=== PATIENT | male | born 1960 | race Caucasian/White ===

== ENCOUNTER 2018-08-03 23:34 | Emergency (ER) | payer MEDICARE ==
[~2018-08-03] VITALS: Ht 177.8 cm; Wt 77.1 kg
[~2018-08-03 23:34] MED LIST: COREG6.25 MG PO; LISINOPRIL10 MG PO
[2018-08-04] MEDS ORDERED: METHYLPREDNISOLONE SOD SUCC 125 MG/2ML VIAL IV ONE
[2018-08-04] MEDS ORDERED: ALBUTEROL/IPRATROPIUM 3 ML NEB NEB ONE ×3
[2018-08-04] MEDS ORDERED: VENTOLIN HFA18 GM PO (00:15)
[2018-08-04] MEDS ORDERED: PREDNISONE20 MG PO (00:15)
[2018-08-04] MEDS ORDERED: TESSALON PERLE100 MG PO (00:15)
[2018-08-04] MEDS ORDERED: AZITHROMYCIN250 MG PO (00:15)
--- NOTE | 2018-08-04 00:37 | Diagnostic Imaging Report ---
EXAMINATION: PA and lateral views of the chest. COMPARISON: None CLINICAL HISTORY: Cough, congestion, shortness of breath DISCUSSION: Lines/tubes: Right upper chest multilead cardiac device Lungs: Lungs are hyperinflated, with straightening of the hemidiaphragms and marked increased lucency of the upper lobes, right greater than left, associated with COPD changes. Ill-defined opacity in the left mid lung, likely in the left upper lobe. Linear opacity predominantly noted in the lateral view, likely in the right upper lobe adjacent to a large bulla Pleura: There is no pleural effusion or pneumothorax. Heart and mediastinum: Cardiomediastinal silhouette is unremarkable. Pulmonary vasculature is normal. Bones and soft tissues: No acute bony abnormalities. Degenerative changes in the thoracic spine IMPRESSION: 1. Ill-defined opacity in the left mid lung, likely located in the left upper lobe. While this may represent focal scarring given the COPD changes, pneumonia is a consideration in the appropriate clinical setting. No prior films are available for comparison. 2. COPD changes, with likely large bulla in the lower right upper lobe. Signed by: Dr. James Dong M.D. on 08/04/2018 12:33 AM
[2018-08-04] MEDS ORDERED: DOXYCYCLINE HY100 MG PO (00:41)
== END 2018-08-04 00:55 | disposition home or self-care (01) ==
LOC: FSED 23:34
DX: R06.00 Dyspnea, unspecified (principal); J44.1 Chronic obstructive pulmonary disease with (acute) exacerbation; J18.0 Bronchopneumonia, unspecified organism; F17.210 Nicotine dependence, cigarettes, uncomplicated
CPT/HCPCS: 71046; 80053; 82553; 83880; 84484; 85025; 93005; 99283; J2930

== ENCOUNTER 2020-12-13 11:44 | Inpatient (IN) | payer MEDICARE ==
[~2020-12-13] VITALS: Ht 177.8 cm; Wt 77.1 kg
[~2020-12-13 11:44] MED LIST changes: +AZITHROMYCIN250 MG PO; +DOXYCYCLINE HY100 MG PO; +PREDNISONE20 MG PO; +TESSALON PERLE100 MG PO; +VENTOLIN HFA18 GM PO
[2020-12-13 12:24] LABS: BASOPHILS # (AUTO) 0.1 (0.0-0.1); BASOPHILS % 0.5 % (0.0-1.0); EOSINOPHILS # (AUTO) 0.1 (0.0-0.4); EOSINOPHILS % 0.9 % (0.0-6.0); HEMATOCRIT 40.8 % (38.2-49.6); HEMOGLOBIN 13.7 g/dL (14.0-18.0); LYMPHOCYTES # (AUTO) 1.3 (1.0-3.2); LYMPHOCYTES % 9.5 % (18.0-39.1); MEAN CORPUSCULAR HEMOGLOBIN 31.2 pg (28-32); MEAN CORPUSCULAR HGB CONC 33.6 g/dL (31-35); MEAN CORPUSCULAR VOLUME 92.9 fL (81-99); MONOCYTES # (AUTO) 0.7 (0.2-0.8); MONOCYTES % 5.2 % (4.4-11.3); NEUTROPHILS # (AUTO) 11.3 (2.1-6.9); NEUTROPHILS % 81.2 % (38.7-80.0); PLATELET COUNT 247 x10e3/uL (140-360); RED BLOOD COUNT 4.39 x10e6/uL (4.3-5.7); RED CELL DISTRIBUTION WIDTH 12.7 % (11.7-14.4)
[2020-12-13] MEDS ORDERED: DEXAMETHASONE SOD PHOS 10 MG/1 ML VIAL IV ONE (12:30)
[2020-12-13] MEDS ORDERED: ALBUTEROL/IPRATROPIUM 3 ML NEB NEB ONE (12:30)
[2020-12-13 12:39] LABS: ALBUMIN 2.4 g/dL (3.5-5.0); ALBUMIN/GLOBULIN RATIO 0.6 (0.8-2.0); ANION GAP 17.2 mmol/L (8-16); CALCIUM 8.1 mg/dL (8.4-10.2); CREATININE, SERUM 0.66 mg/dL (0.72-1.25); POTASSIUM 4.2 mmol/L (3.5-5.1)
[2020-12-13] MEDS ORDERED: SUCCINYLCHOLINE CHLORIDE 20 MG/ML 10ML VIAL ONE (13:37)
[2020-12-13] MEDS ORDERED: VECURONIUM BROMIDE FOR INJ 20 MG VIAL ONE (13:37)
[2020-12-13] MEDS ORDERED: ETOMIDATE 2 MG/ML 10 ML INJ IV ONE (13:37)
[2020-12-13] MEDS ORDERED: MIDAZOLAM HCL 2 MG/2 ML VIAL ONE (13:37)
[2020-12-13] MEDS ORDERED: SODIUM CHLORIDE 0.9% 1000ML 1,000 ML IV SCH (13:45)
[2020-12-13] MEDS: CEFEPIME 1 GM in SODIUM CHLORIDE 0.9% 50ML 50 ML IV SCH (14:07)
[2020-12-13] MEDS ORDERED: ALBUTEROL/IPRATROPIUM 3 ML NEB NEB PRN ×2 (14:15)
[2020-12-13] MEDS ORDERED: HYDRALAZINE HCL 20 MG/ML VIAL IV PRN (14:15)
[2020-12-13] MEDS ORDERED: DIPHENHYDRAMINE HCL 25 MG CAP PO PRN (14:15)
[2020-12-13] MEDS ORDERED: DEXTROSE 50% SYRINGE 50 ML IV PRN ×2 (14:15)
[2020-12-13] MEDS ORDERED: POTASSIUM CHLORIDE 20 MEQ TAB CR PO PRN (14:15)
[2020-12-13] MEDS ORDERED: ONDANSETRON HCL INJ 2MG/ML 2ML 2 MG/ML VIAL IV PRN (14:15)
[2020-12-13] MEDS ORDERED: DOCUSATE SODIUM 100 MG CAP PO PRN (14:15)
[2020-12-13] MEDS ORDERED: LIDOCAINE 4% PATCH TP PRN (14:15)
[2020-12-13] MEDS ORDERED: FUROSEMIDE INJ 10 MG/ML 2 ML VIAL IV ONE (15:00)
[2020-12-13] MEDS ORDERED: AZITHROMYCIN 250 MG TAB PO ONE (15:30)
[2020-12-13] MEDS: ACETAMINOPHEN 325 MG TAB PO PRN (16:28)
[2020-12-13] MEDS: LISINOPRIL 20 MG TAB PO SCH (17:00)
[2020-12-13] MEDS: CARVEDILOL 3.125 MG TAB PO SCH (17:00)
[2020-12-13 18:17] LABS: ABG HCO3 16 mmol/L (22-26); ABG PCO2 21 mmHg (35-45); ABG PH 7.48 (7.35-7.45); ABG PO2 33 mmHg (80-105); ABG TCO2 17
[2020-12-13] MEDS ORDERED: VANCOMYCIN 750MG/NS 150ML IVPB 150 ML IV SCH (18:30)
[2020-12-13] MEDS: ALBUTEROL/IPRATROPIUM 3 ML NEB NEB SCH (19:00)
[2020-12-13] MEDS ORDERED: MELATONIN 5 MG TABLET PO PRN (21:00)
[2020-12-13] MEDS ORDERED: METHYLPREDNISOLONE SOD SUCC 40 MG/ML VIAL 1ML IV SCH (22:00)
[2020-12-13] MEDS: METHYLPREDNISOLONE SOD SUCC 40 MG/ML VIAL 1ML IV SCH (23:30)
[2020-12-13] MEDS: ENOXAPARIN SOD INJ 40 MG/0.4 ML SYR SC SCH (23:30)
[2020-12-13] MEDS: BENZONATATE 100 MG CAP PO PRN (23:30)
[2020-12-13 23:53] VITALS: BP 134/95
[2020-12-14] VITALS (9 sets, daily range): BP systolic 85–134; BP diastolic 53–95
[2020-12-14] MEDS: ALBUTEROL/IPRATROPIUM 3 ML NEB NEB SCH ×4 (00:20→19:33)
[2020-12-14] MEDS: CEFEPIME 1 GM in SODIUM CHLORIDE 0.9% 50ML 50 ML IV SCH ×2 (01:24→14:30)
[2020-12-14] MEDS ORDERED: CARVEDILOL12.5 MG PO (02:46)
[2020-12-14] MEDS ORDERED: SALINE NOSE SPR45 ML INH (02:47)
[2020-12-14] MEDS ORDERED: ACETAMINOPHEN1 EACH PO (02:52)
[2020-12-14] MEDS ORDERED: BENADRYL25 M1 PO (02:52)
[2020-12-14] MEDS ORDERED: ACETAMINOPHEN650 M3 PO (02:53)
[2020-12-14 03:59] LABS: BASOPHILS % 0.2 % (0.0-1.0); HEMATOCRIT 37.2 % (38.2-49.6); HEMOGLOBIN 12.6 g/dL (14.0-18.0); LYMPHOCYTES # (AUTO) 0.9 (1.0-3.2); LYMPHOCYTES % 7.3 % (18.0-39.1); MEAN CORPUSCULAR HEMOGLOBIN 31.7 pg (28-32); MEAN CORPUSCULAR HGB CONC 33.9 g/dL (31-35); MEAN CORPUSCULAR VOLUME 93.5 fL (81-99); MONOCYTES # (AUTO) 0.5 (0.2-0.8); MONOCYTES % 3.6 % (4.4-11.3); NEUTROPHILS # (AUTO) 11.2 (2.1-6.9); NEUTROPHILS % 87.5 % (38.7-80.0); PLATELET COUNT 187 x10e3/uL (140-360); RED BLOOD COUNT 3.98 x10e6/uL (4.3-5.7); RED CELL DISTRIBUTION WIDTH 12.8 % (11.7-14.4)
[2020-12-14 04:19] LABS: ALBUMIN 2.3 g/dL (3.5-5.0); ALBUMIN/GLOBULIN RATIO 0.7 (0.8-2.0); ANION GAP 16.4 mmol/L (8-16); CALCIUM 7.7 mg/dL (8.4-10.2); CREATININE, SERUM 0.61 mg/dL (0.72-1.25); POTASSIUM 4.4 mmol/L (3.5-5.1)
[2020-12-14] MEDS: METHYLPREDNISOLONE SOD SUCC 40 MG/ML VIAL 1ML IV SCH ×3 (08:03→17:41)
[2020-12-14] MEDS: PANTOPRAZOLE SOD 40 MG TABEC PO SCH (08:04)
[2020-12-14] MEDS: VANCOMYCIN 750MG/NS 150ML IVPB 150 ML IV SCH ×2 (08:07→20:38)
[2020-12-14] MEDS: FUROSEMIDE 40 MG TAB PO SCH (09:45)
[2020-12-14] MEDS: LISINOPRIL 20 MG TAB PO SCH (09:45)
[2020-12-14] MEDS: AZITHROMYCIN 250 MG TAB PO SCH (09:46)
[2020-12-14] MEDS: CARVEDILOL 3.125 MG TAB PO SCH ×2 (09:47→17:43)
[2020-12-14 13:41] LABS: ABG HCO3 20 mmol/L (22-26); ABG PCO2 27 mmHg (35-45); ABG PH 7.49 (7.35-7.45); ABG PO2 57 mmHg (80-105); ABG TCO2 21
[2020-12-14 14:12] LABS: CHOL/HDL RATIO 4.6 (3.9-4.7)
[2020-12-14] MEDS: LISINOPRIL 10 MG TAB PO SCH (17:43)
[2020-12-14] MEDS: ENOXAPARIN SOD INJ 40 MG/0.4 ML SYR SC SCH (17:44)
[2020-12-14] MEDS: BENZONATATE 100 MG CAP PO PRN (20:55)
[2020-12-14] MEDS: LORAZEPAM 0.5 MG TAB PO PRN (20:55)
[2020-12-14] MEDS: ATORVASTATIN 40 MG TAB PO SCH (22:12)
[2020-12-15] VITALS (10 sets, daily range): BP systolic 98–128; BP diastolic 57–90
[2020-12-15] MEDS: ALBUTEROL/IPRATROPIUM 3 ML NEB NEB SCH ×4 (00:30→19:30)
[2020-12-15] MEDS: CEFEPIME 1 GM in SODIUM CHLORIDE 0.9% 50ML 50 ML IV SCH ×2 (01:52→14:19)
[2020-12-15] MEDS: PANTOPRAZOLE SOD 40 MG TABEC PO SCH (07:55)
[2020-12-15] MEDS: METHYLPREDNISOLONE SOD SUCC 40 MG/ML VIAL 1ML IV SCH ×3 (07:55→16:35)
[2020-12-15] MEDS: VANCOMYCIN 750MG/NS 150ML IVPB 150 ML IV SCH ×2 (08:41→20:39)
[2020-12-15] MEDS: ASPIRIN 81 MG ENTERIC COATED PO SCH (09:09)
[2020-12-15] MEDS: LISINOPRIL 10 MG TAB PO SCH ×2 (09:10→17:37)
[2020-12-15] MEDS: FUROSEMIDE 40 MG TAB PO SCH (09:10)
[2020-12-15] MEDS: CARVEDILOL 3.125 MG TAB PO SCH ×2 (09:10→17:37)
[2020-12-15] MEDS: AZITHROMYCIN 250 MG TAB PO SCH (09:10)
[2020-12-15] MEDS: ACETAMINOPHEN 325 MG TAB PO PRN (10:58)
[2020-12-15] MEDS: LORAZEPAM 0.5 MG TAB PO PRN ×2 (13:35→20:51)
[2020-12-15] MEDS ORDERED: GABAPENTIN 100 MG CAP PO PRN (13:45)
[2020-12-15] MEDS: ENOXAPARIN SOD INJ 40 MG/0.4 ML SYR SC SCH (17:37)
[2020-12-15] MEDS: BUSPIRONE HCL 5 MG TAB PO SCH (19:33)
[2020-12-15] MEDS: ATORVASTATIN 40 MG TAB PO SCH (20:39)
[2020-12-15] MEDS: BENZONATATE 100 MG CAP PO PRN (20:51)
[2020-12-16] VITALS (9 sets, daily range): BP systolic 124–148; BP diastolic 85–97
[2020-12-16] MEDS: ALBUTEROL/IPRATROPIUM 3 ML NEB NEB SCH ×4 (01:35→19:30)
[2020-12-16] MEDS: CEFEPIME 1 GM in SODIUM CHLORIDE 0.9% 50ML 50 ML IV SCH ×2 (02:33→14:33)
[2020-12-16 05:47] LABS: BASOPHILS % 0.2 % (0.0-1.0); HEMOGLOBIN 11.5 g/dL (14.0-18.0); LYMPHOCYTES # (AUTO) 1.4 (1.0-3.2); LYMPHOCYTES % 10.7 % (18.0-39.1); MEAN CORPUSCULAR HEMOGLOBIN 30.8 pg (28-32); MEAN CORPUSCULAR HGB CONC 32.9 g/dL (31-35); MEAN CORPUSCULAR VOLUME 93.8 fL (81-99); MONOCYTES # (AUTO) 0.6 (0.2-0.8); MONOCYTES % 4.3 % (4.4-11.3); NEUTROPHILS # (AUTO) 10.7 (2.1-6.9); NEUTROPHILS % 83.7 % (38.7-80.0); PLATELET COUNT 141 x10e3/uL (140-360); RED BLOOD COUNT 3.73 x10e6/uL (4.3-5.7); RED CELL DISTRIBUTION WIDTH 13.1 % (11.7-14.4)
[2020-12-16 05:55] LABS: ANION GAP 12.1 mmol/L (8-16); CALCIUM 8.1 mg/dL (8.4-10.2); CREATININE, SERUM 0.59 mg/dL (0.72-1.25); POTASSIUM 4.1 mmol/L (3.5-5.1)
[2020-12-16] MEDS: PANTOPRAZOLE SOD 40 MG TABEC PO SCH (08:15)
[2020-12-16] MEDS: METHYLPREDNISOLONE SOD SUCC 40 MG/ML VIAL 1ML IV SCH ×3 (08:15→18:57)
[2020-12-16] MEDS: AZITHROMYCIN 250 MG TAB PO SCH (08:16)
[2020-12-16] MEDS: ASPIRIN 81 MG ENTERIC COATED PO SCH (08:16)
[2020-12-16] MEDS: FUROSEMIDE 40 MG TAB PO SCH (08:16)
[2020-12-16] MEDS: BUSPIRONE HCL 5 MG TAB PO SCH ×2 (08:19→18:52)
[2020-12-16] MEDS: CARVEDILOL 3.125 MG TAB PO SCH ×2 (08:21→18:53)
[2020-12-16] MEDS: LISINOPRIL 10 MG TAB PO SCH ×2 (08:21→18:53)
[2020-12-16] MEDS: VANCOMYCIN 750MG/NS 150ML IVPB 150 ML IV SCH (08:30)
[2020-12-16] MEDS ORDERED: BUSPIRONE HCL 5 MG TAB PO SCH (09:00)
[2020-12-16] MEDS ORDERED: DEXMEDETOMIDINE 200MCG/NS 50ML 50 ML IV ONE (12:04)
[2020-12-16] MEDS: DEXMEDETOMIDINE 200MCG/NS 50ML 50 ML IV PRN ×2 (12:10→21:08)
[2020-12-16] MEDS: ACETAMINOPHEN 325 MG TAB PO PRN (14:28)
[2020-12-16] MEDS: NEOMYCIN/POLYMYX/BACITR OINT 0.9 GM PKT TOP SCH (14:33)
[2020-12-16] MEDS: ENOXAPARIN SOD INJ 40 MG/0.4 ML SYR SC SCH (18:53)
[2020-12-16] MEDS: BUDESONIDE 0.5MG/2 ML NEB INH SCH (19:00)
[2020-12-16] MEDS: LORAZEPAM 0.5 MG TAB PO PRN (19:54)
[2020-12-16] MEDS: ATORVASTATIN 40 MG TAB PO SCH (22:38)
[2020-12-16] MEDS: BENZONATATE 100 MG CAP PO PRN (23:25)
[2020-12-17] VITALS (9 sets, daily range): BP systolic 102–151; BP diastolic 67–100
[2020-12-17] MEDS: ALBUTEROL/IPRATROPIUM 3 ML NEB NEB SCH ×4 (01:00→19:35)
[2020-12-17] MEDS: CEFEPIME 1 GM in SODIUM CHLORIDE 0.9% 50ML 50 ML IV SCH ×2 (01:13→14:25)
[2020-12-17 05:06] LABS: BASOPHILS % 0.1 % (0.0-1.0); EOSINOPHILS % 0.1 % (0.0-6.0); HEMOGLOBIN 11.9 g/dL (14.0-18.0); LYMPHOCYTES % 7.7 % (18.0-39.1); MEAN CORPUSCULAR HEMOGLOBIN 31.1 pg (28-32); MEAN CORPUSCULAR HGB CONC 33.1 g/dL (31-35); MONOCYTES # (AUTO) 0.5 (0.2-0.8); MONOCYTES % 4.3 % (4.4-11.3); NEUTROPHILS # (AUTO) 10.8 (2.1-6.9); NEUTROPHILS % 86.8 % (38.7-80.0); PLATELET COUNT 134 x10e3/uL (140-360); RED BLOOD COUNT 3.83 x10e6/uL (4.3-5.7)
[2020-12-17 05:27] LABS: ANION GAP 15.4 mmol/L (8-16); CALCIUM 8.5 mg/dL (8.4-10.2); CREATININE, SERUM 0.57 mg/dL (0.72-1.25); POTASSIUM 4.4 mmol/L (3.5-5.1)
[2020-12-17] MEDS: BUDESONIDE 0.5MG/2 ML NEB INH SCH ×2 (07:00→19:35)
[2020-12-17] MEDS: METHYLPREDNISOLONE SOD SUCC 40 MG/ML VIAL 1ML IV SCH ×2 (07:51→20:17)
[2020-12-17] MEDS: PANTOPRAZOLE SOD 40 MG TABEC PO SCH (07:51)
[2020-12-17] MEDS: ASPIRIN 81 MG ENTERIC COATED PO SCH (08:13)
[2020-12-17] MEDS: BUSPIRONE HCL 5 MG TAB PO SCH ×2 (08:13→17:25)
[2020-12-17] MEDS: LISINOPRIL 10 MG TAB PO SCH ×2 (08:14→17:25)
[2020-12-17] MEDS: FUROSEMIDE 40 MG TAB PO SCH (08:14)
[2020-12-17] MEDS: CARVEDILOL 3.125 MG TAB PO SCH ×2 (08:14→17:25)
[2020-12-17] MEDS: NEOMYCIN/POLYMYX/BACITR OINT 0.9 GM PKT TOP SCH (08:15)
[2020-12-17] MEDS: LORAZEPAM 0.5 MG TAB PO PRN ×2 (08:15→17:35)
[2020-12-17] MEDS: AZITHROMYCIN 250 MG TAB PO SCH (08:15)
[2020-12-17] MEDS: DEXMEDETOMIDINE 200MCG/NS 50ML 50 ML IV PRN ×2 (11:12→22:19)
[2020-12-17] MEDS: ENOXAPARIN SOD INJ 40 MG/0.4 ML SYR SC SCH (17:25)
[2020-12-17] MEDS: ATORVASTATIN 40 MG TAB PO SCH (20:17)
[2020-12-17] MEDS: BENZONATATE 100 MG CAP PO PRN (20:18)
[2020-12-18] VITALS (10 sets, daily range): BP systolic 54–150; BP diastolic 40–114
[2020-12-18] MEDS: DEXMEDETOMIDINE 200MCG/NS 50ML 50 ML IV PRN ×3 (00:13→04:02)
[2020-12-18] MEDS: BENZONATATE 100 MG CAP PO PRN (00:56)
[2020-12-18] MEDS: LORAZEPAM 0.5 MG TAB PO PRN (00:56)
[2020-12-18] MEDS: ALBUTEROL/IPRATROPIUM 3 ML NEB NEB SCH ×2 (01:44→07:20)
[2020-12-18] MEDS: CEFEPIME 1 GM in SODIUM CHLORIDE 0.9% 50ML 50 ML IV SCH (02:09)
[2020-12-18 03:55] LABS: BASOPHILS % 0.1 % (0.0-1.0); HEMATOCRIT 37.9 % (38.2-49.6); HEMOGLOBIN 12.5 g/dL (14.0-18.0); LYMPHOCYTES # (AUTO) 0.7 (1.0-3.2); LYMPHOCYTES % 6.3 % (18.0-39.1); MEAN CORPUSCULAR HEMOGLOBIN 30.7 pg (28-32); MEAN CORPUSCULAR VOLUME 93.1 fL (81-99); MONOCYTES # (AUTO) 0.5 (0.2-0.8); NEUTROPHILS # (AUTO) 10.2 (2.1-6.9); NEUTROPHILS % 88.5 % (38.7-80.0); PLATELET COUNT 118 x10e3/uL (140-360); RED BLOOD COUNT 4.07 x10e6/uL (4.3-5.7); RED CELL DISTRIBUTION WIDTH 12.9 % (11.7-14.4)
[2020-12-18 04:06] LABS: ANION GAP 14.6 mmol/L (8-16); CALCIUM 8.2 mg/dL (8.4-10.2); CREATININE, SERUM 0.58 mg/dL (0.72-1.25); POTASSIUM 4.6 mmol/L (3.5-5.1)
[2020-12-18] MEDS: BUDESONIDE 0.5MG/2 ML NEB INH SCH (07:20)
[2020-12-18] MEDS: PANTOPRAZOLE SOD 40 MG TABEC PO SCH (07:48)
[2020-12-18] MEDS: METHYLPREDNISOLONE SOD SUCC 40 MG/ML VIAL 1ML IV SCH (08:06)
[2020-12-18] MEDS: ASPIRIN 81 MG ENTERIC COATED PO SCH (08:06)
[2020-12-18] MEDS: BUSPIRONE HCL 5 MG TAB PO SCH (08:06)
[2020-12-18] MEDS: FUROSEMIDE 40 MG TAB PO SCH (08:06)
[2020-12-18] MEDS: CARVEDILOL 3.125 MG TAB PO SCH (08:06)
[2020-12-18] MEDS: NEOMYCIN/POLYMYX/BACITR OINT 0.9 GM PKT TOP SCH (08:07)
[2020-12-18] MEDS: AZITHROMYCIN 250 MG TAB PO SCH (08:07)
[2020-12-18] MEDS: LISINOPRIL 10 MG TAB PO SCH (08:07)
[2020-12-18] MEDS ORDERED: FENTANYL 2000MCG/NS 250 250 ML IV SCH (10:00)
[2020-12-18] MEDS ORDERED: PROPOFOL IV EMULSION 10MG/ML 100 ML IV SCH (10:00)
[2020-12-18] MEDS ORDERED: NOREPINEPHRINE 8 MG/D5W 250 ML 250 ML IV SCH (10:45)
[2020-12-18 12:31] LABS: ABG HCO3 21 mmol/L (22-26); ABG PCO2 27 mmHg (35-45); ABG PO2 57 mmHg (80-105); ABG TCO2 22
[2020-12-23] MEDS ORDERED: CALCIUM CHLORIDE 10% 1.36 MEQ/ML 10ML SYR IV ONE (13:44)
[2020-12-23] MEDS ORDERED: SODIUM BICARBONATE 8.4% INJ 50 ML SYR ONE (13:44)
[2020-12-23] MEDS ORDERED: EPINEPHRINE HCL SYRINGE ONE (13:44)
== END 2020-12-18 13:44 | disposition expired | DRG 871 ==
LOC: ER 12:20 → ERHOLD 13:44 → MED/SURG2 17:10 → IMCU 17:34 → ERHOLD 19:40 → IMCU 23:55 → ICU 12-18 10:32
PROVIDERS: ADMIT Internal Medicine; ATTEND Internal Medicine
PROC: 02HV33Z Insertion of Infusion Device into Superior Vena Cava, Percutaneous Approach (ICD-10-PCS; 2020-12-13)
PROC: 0BH18EZ Insertion of Endotracheal Airway into Trachea, Via Natural or Artificial Opening Endoscopic (ICD-10-PCS; principal; 2020-12-18)
PROC: 5A1935Z Respiratory Ventilation, Less than 24 Consecutive Hours (ICD-10-PCS; 2020-12-18)
PROC: 5A12012 Performance of Cardiac Output, Single, Manual (ICD-10-PCS; 2020-12-18)
DX: A41.9 Sepsis, unspecified organism (principal); I50.23 Acute on chronic systolic (congestive) heart failure; J96.21 Acute and chronic respiratory failure with hypoxia; J15.6 Pneumonia due to other Gram-negative bacteria; R65.21 Severe sepsis with septic shock; E46 Unspecified protein-calorie malnutrition; E87.2 Acidosis; R65.20 Severe sepsis without septic shock; I11.0 Hypertensive heart disease with heart failure; Z95.810 Presence of automatic (implantable) cardiac defibrillator; F17.210 Nicotine dependence, cigarettes, uncomplicated; I46.8 Cardiac arrest due to other underlying condition; J43.9 Emphysema, unspecified; Z68.24 Body mass index [BMI] 24.0-24.9, adult; Z91.19 Patient's noncompliance with other medical treatment and regimen; J84.10 Pulmonary fibrosis, unspecified; F41.9 Anxiety disorder, unspecified; Z20.822 Contact with and (suspected) exposure to COVID-19; I25.10 Atherosclerotic heart disease of native coronary artery without angina pectoris
CPT/HCPCS: 31500; 36415; 36569; 36600; 71045; 71250; 80048; 80053; 80061; 80202; 82805; 82948; 83605; 83880; 84484; 85025; 86631; 86738; 87040; 87070; 87205; 87449; 92950; 93005; 93306; 94002; 94640; 94660; 97139; 99284; J0330; J0692; J1100; J1650; J1940; J2250; J2920; J7030; U0002